=== PATIENT | female | born 1965 | race Hispanic/Latino ===

== ENCOUNTER 2019-12-22 08:30 | Emergency (ER) | payer OTHER ==
[2019-12-22] MEDS ORDERED: ONDANSETRON 4 MG (ODT) TAB ONE ×2 (08:53→08:55)
--- NOTE | 2019-12-22 09:21 | ER ---
Nurse's Notes [facility] Name: Shena Kang Age: 54 yrs Sex: Female : 1965 Arrival Date: 12/22/2019 Time: 08:33 Bed 5 Private MD: Diagnosis: Nausea and vomiting Presentation: 12/22 08:42 Presenting complaint: Patient states: Started vomiting at 0300 this morning, went to 7 work and they said to go the the ER. Diarrhea 2 days ago but none now, denies abdominal pain. Transition of care: patient was not received from another setting of care. Onset of symptoms was December 22, 2019 at 03:00. Risk Assessment: Do you want to hurt yourself or someone else? Patient reports no desire to harm self or others. Initial Sepsis Screen: Does the patient meet any 2 criteria? No. Patient's initial sepsis screen is negative. Does the patient have a suspected source of infection? No. Patient's initial sepsis screen is negative. Care prior to arrival: None. 08:42 Method Of Arrival: Ambulatory [facility] 08:42 Acuity: TEJAS 4 jl7 Triage Assessment: 08:45 General: Appears in no apparent distress. uncomfortable, Behavior is calm, cooperative, jl7 appropriate for age. Pain: Denies pain. Neuro: Level of Consciousness is awake, alert, obeys commands. Cardiovascular: Patient's skin is warm and dry. Respiratory: Airway is patent Respiratory effort is even, unlabored, Respiratory pattern is regular, symmetrical. GI: Reports nausea, vomiting. Derm: Skin is pink, warm \T\ dry. Historical: - Allergies: 08:45 Codeine; jl7 08:45 PENICILLINS; jl7 08:45 Tylenol; jl7 - Home Meds: 08:45 Uknown Diabetes pill [Active]; jl7 - PMHx: 08:45 Diabetes - NIDDM; Depression; Anxiety; jl7 - PSHx: 08:45 ; Cholecystectomy; jl7 - Immunization history:: Adult Immunizations unknown. - Coronavirus screen:: The patient has NOT traveled to [place] in the past 14 days. Proceed with normal triage process as indicated. - Social history:: Smoking status: Patient denies any tobacco usage or history of. - Ebola Screening: : No symptoms or risks identified at this time. Screenin:47 Abuse screen: Denies threats or abuse. Denies injuries from another. Nutritional jl7 screening: No deficits noted. Tuberculosis screening: No symptoms or risk factors identified. Fall Risk None identified. Assessment: 08:59 General: See triage assessment. jl7 09:28 Reassessment: Patient appears in no apparent distress at this time. Patient and/or jl7 family updated on plan of care and expected duration. Pain level reassessed. Patient is alert, oriented x 3, equal unlabored respirations, skin warm/dry/pink. Patient states feeling better. Patient states symptoms have improved. GI: Patient currently denies nausea. Vital Signs: 08:45 BP 145 / 77; Pulse 65; Resp 17 S; Temp 98.1(O); Pulse Ox 99% on R/A; Weight 72.57 kg jl7 (R); Height 5 ft. 1 in. (154.94 cm) (R); Pain 0/10; 08:45 Body Mass Index 30.23 (72.57 kg, 154.94 cm) jl7 ED Course: 08:33 Patient arrived in ED. mr 08:34 Lars Wenistin, SANJU-C [facility]. kb 08:34 Arjun aP MD is Attending Physician. kb 08:36 Sarah Martinez, RENETTA is Primary Nurse. jl7 08:44 Triage completed. jl7 08:45 Arm band placed on right wrist. jl7 08:47 Patient has correct armband on for positive identification. Placed in gown. Bed in low jl7 position. Call light in reach. Side rails up X 1. Pulse ox on. NIBP on. 08:59 Flu and/or RSV swab sent to lab. Strep swab sent to lab. jl7 09:03 Strep Sent. jl7 09:03 Flu Sent. jl7 09:28 No provider procedures requiring assistance completed. Patient did not have IV access jl7 during this emergency room visit. Administered Medications: 08:53 Drug: Zofran 4 mg Route: PO; jl7 09:20 Follow up: Response: Nausea is decreased jl7 Outcome: 09:19 Discharge ordered by . kb 09:28 Discharged to home ambulatory. jl7 09:28 Condition: stable 09:28 Discharge instructions given to patient, Instructed on discharge instructions, follow up and referral plans. medication usage, Demonstrated understanding of instructions, follow-up care, medications, Prescriptions given X 1. 09:28 Patient left the ED. jl7 Signatures: Negar Wen FNP-C FNP-Nancy Holloway Jahala, RN RN jl7
--- NOTE | 2019-12-22 09:22 | EDPHYS ---
Physician Documentation [facility] Name: Shena Kang Age: 54 yrs Sex: Female : 1965 Arrival Date: 12/22/2019 Time: 08:33 Bed 5 Private MD: ED Physician Arjun Pa HPI: 12/22 08:59 This 54 yrs old Female presents to ER via Ambulatory with complaints of kb Vomiting. 08:59 The patient presents to the emergency department with nausea, vomiting. Onset: The kb symptoms/episode began/occurred this morning, at 03:00. Possible causes: unknown. The symptoms are aggravated by nothing. The symptoms are alleviated by nothing. Associated signs and symptoms: Pertinent positives: nausea, vomiting. Severity of symptoms: At their worst the symptoms were mild moderate in the emergency department the symptoms are unchanged. The patient has not experienced similar symptoms in the past. The patient has not recently seen a physician. Pt reports she started vomiting at 0300 (6 times total), went to work this morning and was sent home. States she needs a note to return to work. Reports upper abd pain when vomiting. Denies fever. 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 Historical: - Allergies: 08:45 Codeine; jl7 08:45 PENICILLINS; jl7 08:45 Tylenol; jl7 - Home Meds: 08:45 Uknown Diabetes pill [Active]; jl7 - PMHx: 08:45 Diabetes - NIDDM; Depression; Anxiety; jl7 - PSHx: 08:45 ; Cholecystectomy; jl7 - Immunization history:: Adult Immunizations unknown. - Coronavirus screen:: The patient has NOT traveled to [place] in the past 14 days. Proceed with normal triage process as indicated. - Social history:: Smoking status: Patient denies any tobacco usage or history of. - Ebola Screening: : No symptoms or risks identified at this time. ROS: 08:59 Constitutional: Negative for fever, chills, and weight loss, ENT: Negative for injury, kb pain, and discharge, Neck: Negative for injury, pain, and swelling, Cardiovascular: Negative for chest pain, palpitations, and edema, Respiratory: Negative for shortness of breath, cough, wheezing, and pleuritic chest pain, Back: Negative for injury and pain, MS/Extremity: Negative for injury and deformity, Skin: Negative for injury, rash, and discoloration, Neuro: Negative for headache, weakness, numbness, tingling, and seizure. 08:59 Abdomen/GI: Positive for nausea and vomiting. Exam: 08:59 Constitutional: This is a well developed, well nourished patient who is awake, alert, kb and in no acute distress. Head/Face: Normocephalic, atraumatic. ENT: Nares patent. No nasal discharge, no septal abnormalities noted. Tympanic membranes are normal and external auditory canals are clear. Oropharynx with no redness, swelling, or masses, exudates, or evidence of obstruction, uvula midline. Mucous membranes moist. Neck: Trachea midline, no thyromegaly or masses palpated, and no cervical lymphadenopathy. Supple, full range of motion without nuchal rigidity, or vertebral point tenderness. No Meningismus. Chest/axilla: Normal chest wall appearance and motion. Nontender with no deformity. No lesions are appreciated. Cardiovascular: Regular rate and rhythm with a normal S1 and S2. No gallops, murmurs, or rubs. Normal PMI, no JVD. No pulse deficits. Respiratory: Lungs have equal breath sounds bilaterally, clear to auscultation and percussion. No rales, rhonchi or wheezes noted. No increased work of breathing, no retractions or nasal flaring. Abdomen/GI: Soft, non-tender, with normal bowel sounds. No distension or tympany. No guarding or rebound. No evidence of tenderness throughout. Back: No spinal tenderness. No costovertebral tenderness. Full range of motion. Skin: Warm, dry with normal turgor. Normal color with no rashes, no lesions, and no evidence of cellulitis. MS/ Extremity: Pulses equal, no cyanosis. Neurovascular intact. Full, normal range of motion. Neuro: Awake and alert, GCS 15, oriented to person, place, time, and situation. Cranial nerves II-XII grossly intact. Motor strength 5/5 in all extremities. Sensory grossly intact. Cerebellar exam normal. Normal gait. Vital Signs: 08:45 BP 145 / 77; Pulse 65; Resp 17 S; Temp 98.1(O); Pulse Ox 99% on R/A; Weight 72.57 kg jl7 (R); Height 5 ft. 1 in. (154.94 cm) (R); Pain 0/10; 08:45 Body Mass Index 30.23 (72.57 kg, 154.94 cm) jl7 MDM: 08:36 Patient medically screened. [facility] 08:58 Data reviewed: vital signs, nurses notes. Data interpreted: Pulse oximetry: on room air kb is 99 %. Interpretation: normal. 09:19 Counseling: I had a detailed discussion with the patient and/or guardian regarding: the kb historical points, exam findings, and any diagnostic results supporting the discharge/admit diagnosis, lab results, the need for outpatient follow up, a family practitioner, to return to the emergency department if symptoms worsen or persist or if there are any questions or concerns that arise at home. 09:19 Data reviewed: lab test result(s). kb 12/22 08:47 Order name: Flu kb 12/22 08:47 Order name: Strep kb 12/22 09:07 Order name: Glucose, Ancillary Testing; Complete Time: 09:18 EDMS 12/22 09:17 Order name: Group A Streptococcus Rapid Sc; Complete Time: 09:18 EDMS 12/22 09:18 Order name: Influenza Screen (A ; Complete Time: 09:18 EDMS 12/22 09:19 Order name: PO challenge; Complete Time: 09:19 kb Administered Medications: 08:53 Drug: Zofran 4 mg Route: PO; 7 09:20 Follow up: Response: Nausea is decreased jl7 Disposition: 13:40 Co-signature as Attending Physician, Arjun Pa MD I agree with the assessment and [facility] plan of care. Disposition: 12/22/19 09:19 Discharged to Home. Impression: Nausea and vomiting. - Condition is Stable. - Discharge Instructions: Nausea and Vomiting, Adult, [id number]. - Prescriptions for Zofran 4 mg Oral Tablet - take 1 tablet by ORAL route every 6 hours As needed; 20 tablet. - Medication Reconciliation Form, Thank You Letter, Antibiotic Education, Prescription Opioid Use, Work release form form. - Follow up: Emergency Department; When: As needed; Reason: Worsening of condition. Follow up: Private Physician; When: 2 - 3 days; Reason: Recheck today's complaints, Continuance of care, Re-evaluation by your physician. Signatures: Dispatcher [employer] EDMS Behzad, Negar, [employer]-C [employer]-Arjun Gallegos MD MD cha Leal, Jahala, RN RN jl7 Corrections: (The following items were deleted from the chart) 09:28 09:19 12/22/2019 09:19 Discharged to Home. Impression: Nausea and vomiting. Condition jl7 is Stable. Forms are Medication Reconciliation Form, Thank You Letter, Antibiotic Education, Prescription Opioid Use. Follow up: Emergency Department; When: As needed; Reason: Worsening of condition. Follow up: Private Physician; When: 2 - 3 days; Reason: Recheck today's complaints, Continuance of care, Re-evaluation by your physician. kb
== END 2019-12-22 09:28 | disposition home or self-care (01) ==
LOC: ER 08:30
DX: R11.2 Nausea with vomiting, unspecified (principal); Z88.6 Allergy status to analgesic agent; Z88.0 Allergy status to penicillin; E11.9 Type 2 diabetes mellitus without complications
CPT/HCPCS: 82947; 87070; 87081; 87804; 99284